=== PATIENT | male | born 1990 | race Caucasian/White ===

== ENCOUNTER → 2016-11-12 | Day surgery (SDC) | payer OTHER ==
[~2016-11-12] VITALS: Ht 182.9 cm; Wt 77.1 kg
[~2016-11-12] MED LIST: 0.9% Sodium Chloride 1,000 ML IV SCH; SERT100T9 PO; Sodium Chloride LOK Flush 10 mL Syringe IV PRN; fentaNYL-PF 50 mCg/mL 2 mL Inj IVPUSH PRN
[2016-11-12 08:24] VITALS: BP 119/97; PULSE 56
== END | disposition home or self-care (01) ==
LOC: END 07:50
PROVIDERS: ATTEND Internal Medicine
DX: K92.1 Melena (principal); R13.14 Dysphagia, pharyngoesophageal phase; Z53.8 Procedure and treatment not carried out for other reasons